=== PATIENT | male | born 1955 | race Caucasian/White ===

== ENCOUNTER → 2017-06-25 | Outpatient (CLI) | payer BC ==
[~2017-06-25] MED LIST: ATOR-22 PO; CRDCD240 PO; FENO145T26 PO; FLV1 PO; INSDGI SC; LSN40 PO; NVLGI SC; RANI150T3 PO; WARF5TAB7 PO
[2017-06-25 13:22] LABS: HEMOGLOBIN A1C 11.1 % (4.5-5.6)
[2017-06-25 13:52] LABS: ALT/SGPT 33 U/L (12-78); AST/SGOT 21 U/L (15-37); BLOOD UREA NITROGEN 21 mg/dl (7-18); CALCIUM 8.5 mg/dl (8.5-10.1); CARBON DIOXIDE 25 mmol/L (21-32); CREATININE 0.85 mg/dl (0.60-1.40); GLUCOSE 283 mg/dl (70-99); POTASSIUM 4.1 mmol/L (3.5-5.1); SODIUM 133 mmol/L (136-145)
[2017-06-25 13:57] LABS: CHOLESTEROL 161 mg/dl (0-200); LDL CHOLESTEROL CALCULATED 67 mg/dl
== END | disposition home or self-care (01) ==
LOC: C.LABMFLN 06:54
PROVIDERS: ATTEND Internal Medicine
DX: E11.9 Type 2 diabetes mellitus without complications (principal); E78.5 Hyperlipidemia, unspecified; C61 Malignant neoplasm of prostate

== ENCOUNTER 2019-04-01 04:05 | Inpatient (IN) ==
[2019-04-01] MEDS ORDERED: ONDANSETRON INJ 2 MG/ML 2 ML VIAL IV STA ×2 (04:41→07:07)
[2019-04-01] MEDS ORDERED: HYDROmorphone INJ 1 MG/ML SYRINGE IV STA ×3 (04:41→07:52)
[2019-04-01] MEDS ORDERED: SODIUM CHLORIDE 0.9% 1000ML 1,000 ML IV ONE (04:41)
[2019-04-01 05:05] LABS: Hemoglobin 9.2 g/dL (14.0-18.0); Mean Corpuscular Hemoglobin 26.3 pg (25-34); Mean Corpuscular Hgb Conc 32.9 g/dL (32-36); Mean Platelet Volume 10.9 fL (7.4-10.4); Nucleated RBC # (auto) 0.05 K/uL (0-0); Nucleated RBC % (auto) 0.4 %; Platelet Count 100 K/uL (130-400); RDW Coefficient of Variation 16.4 % (11.5-14.5); RDW Standard Deviation 46.1 fL (36.4-46.3); White Blood Count 13.32 K/uL (4.8-10.8)
[2019-04-01 05:15] LABS: Albumin Level 3.1 gm/dl (3.4-5.0); BUN Creatinine Ratio 14.4 (10-20); Bilirubin Direct 0.2 mg/dl (0-0.2); Calcium 8.5 mg/dl (8.5-10.1); Creatinine Clr Calc Pharmacy 76.8 ml/min; Est GFR (African American) 71.1; Est GFR (Non-African American) 61.3; Magnesium 1.4 mg/dl (1.8-2.4)
[2019-04-01 05:18] LABS: Bilirubin,Total 0.6 mg/dl (0.2-1); Total Protein 7.2 gm/dl (6.4-8.2)
[2019-04-01] MEDS ORDERED: IOVERSOL 100ml IV PRN (05:57)
[2019-04-01 06:09] LABS: Basophils # (auto) 0.02 K/uL (0-0.2); Basophils % (auto) 0.2 %; Immature Granulocytes # (auto) 1.21 K/uL (0.00-0.02); Immature Granulocytes % (auto) 9.1 %; Lymphocytes # (auto) 0.44 K/uL (1.2-3.4); Lymphocytes % (auto) 3.3 %; Monocytes # (auto) 0.98 K/uL (0.11-0.59); Monocytes % (auto) 7.4 %; Neutrophils # (auto) 10.67 K/uL (1.4-6.5)
[2019-04-01] MEDS: MAGNESIUM SULFATE / D5W 1 GM/100 ML BAG IV SCH ×2 (06:49→08:01)
[2019-04-01 06:54] LABS: Appearance Urine Cloudy (Clear); Blood Urine 3+ (Negative); Glucose Urine UA Negative (Negative); Ketones Urine Trace (Negative); Leukocyte Esterase Urine 1+ (Negative); Nitrite Urine Negative (Negative); Protein Urine 2+ (Negative); Specific Gravity Urine 1.016 (1.000-1.030); Urobilinogen Urine Negative (Negative)
[2019-04-01 07:03] LABS: Color Urine Amber
[2019-04-01 07:05] LABS: Bilirubin Urine Negative (Negative); Ictotest Urine Negative (Negative)
[2019-04-01 07:08] LABS: RBC Urine Automated >30 /hpf (0-4); Uric Acid Crystals Urine Present (None Prsent)
[2019-04-01 07:10] LABS: Amorphous Sediment Urine Present (None Prsent); Bacteria Urine Automated 1+ (Negative)
--- NOTE | 2019-04-01 07:31 | CT Scan Report ---
ABDOMEN AND PELVIS CT WITH IV CONTRAST CT DOSE: 1076.67 mGy.cm HISTORY: Acute right upper quadrant abdominal pain in a patient with history of pancreatic cancer. r ight upper quad pain. Panc CA TECHNIQUE: Multiaxial CT images of the abdomen and pelvis were performed following the IV administrat ion of 94 cc of Optiray 320, A dose lowering technique was utilized adhering to the principles of [place] ANN. COMPARISON STUDY: CT abdomen and pelvis 02/19/2019 FINDINGS: Mild subsegmental bibasilar atelectasis. There is no pneumatosis or pneumoperitoneum. The imaged infe rior cardiac chambers are mildly enlarged. Mild gallbladder distention and gallbladder wall thickenin g is noted with cholelithiasis. Mild heterogeneity of the right hepatic lobe without discrete focal h epatic mass lesion identified. The spleen is enlarged measuring up to 22.5 cm. Unremarkable adrenal g lands. Mild prominence of the common bile duct without significant intrahepatic biliary ductal dilati on. Patent portal vein. Occlusion of the splenic vein with multiple upper abdominal collaterals redem onstrated. Multiple bilateral renal cysts. Nonobstructing calculi of the right kidney measure up to 4 mm. No ureteral calculi or obstructive uropathy. Partial distention of the urinary bladder with mild wall thickening. Small fat filled bilateral inguinal hernias. Aorta and IVC are unremarkable. Promin ent retroperitoneal lymph nodes include precaval lymph nodes measuring up to 2.2 x 1.4 cm. There is a large heterogeneous multilocular cystic mass of the pancreatic tail measuring over 10 cm i n length which invades adjacent loops of jejunum and abuts the serosal margin of the gastric body wit h probable invasion. The mass also abuts the inferior spleen and perinephric space. No bowel obstruct ion. Colonic diverticulosis without acute diverticulitis. Mild wall thickening throughout the colon m ay be secondary to partial distention. Trace abdominal pelvic ascites. Diffuse omental/peritoneal car cinomatosis. 2.9 x 2.2 cm lesion on image 237 series 3 previously measured 3.5 x 2.3 cm. 1.3 center l esion on image 363 series 3 previously measured 1.67 m. Soft tissues are unremarkable. No suspicious lytic or blastic bony lesions identified. No acute fracture. IMPRESSION: 1. Cholelithiasis with mild gallbladder distention and wall thickening. Correlate clinically to exclu de acute cholecystitis. 2. No bowel obstruction or pneumoperitoneum. 3. Large cystic mass of the pancreatic tail suggestive of probable adenocarcinoma redemonstrated with invasion into adjacent jejunum with abutment and probable serosal invasion into the adjacent gastric body. 4. Extensive omental/mesenteric carcinomatosis with several of the lesions mildly decreased in size f rom comparison. 5. Trace abdominal pelvic ascites. 6. 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 Marked splenomegaly. 7. Nonobstructing bilateral nephrolithiasis. Electronically signed by: Bashir Mitchell M.D. 04/01/2019 7:28 AM
[2019-04-01] MEDS ORDERED: GLUCOSE 10 TABS/TUBE PO PRN (09:47)
[2019-04-01] MEDS ORDERED: CARBOHYDRATES FOR HYPOGLYCEMIA PO PRN (09:47)
[2019-04-01] MEDS ORDERED: GLUCOSE 40% GEL 15 GM TUBE PO PRN (09:47)
[2019-04-01] MEDS ORDERED: ONDANSETRON INJ 2 MG/ML 2 ML VIAL IV PRN (09:47)
[2019-04-01] MEDS ORDERED: GLUCAGON FOR INJ 1 MG VIAL SQ PRN (09:47)
[2019-04-01] MEDS ORDERED: DEXTROSE 50% 50 ML SYRINGE IV PRN (09:47)
[2019-04-01] MEDS ORDERED: PROMETHAZINE HCL 12.5 MG in SODIUM CHLORIDE 0.9% 50 ML IV PRN (09:47)
[2019-04-01] MEDS ORDERED: ACETAMINOPHEN 1,000 MG/100 ML VIAL IV PRN (09:47)
[2019-04-01] MEDS ORDERED: APIXABAN 5 MG TABLET PO SCH (10:00)
[2019-04-01] MEDS ORDERED: SERTRALINE HCL 50 MG TABLET PO SCH (10:00)
[2019-04-01] MEDS ORDERED: PANTOprazole 40 MG TAB PO SCH (10:00)
[2019-04-01] MEDS ORDERED: INSULIN GLARGINE SOLOSTAR 100 UNITS/ML 3 ML PEN SQ SCH (10:00)
[2019-04-01] MEDS ORDERED: dilTIAZem HCL 240 MG CAPCR PO SCH (10:00)
[2019-04-01] MEDS ORDERED: ONDANSETRON HCL 8 MG in DEXTROSE 5% 50 ML IV PRN (10:16)
--- NOTE | 2019-04-01 10:58 | Ultrasound Report ---
US gallbladder HISTORY: 63 years-old Male Cholelithasis seen on CT; abdominal pain . Generalized abdominal pain wit h pancreatic mass and cholelithiasis COMPARISON: CT abdomen and pelvis of same day TECHNIQUE: Multiple real-time sonographic images of the abdominal right upper quadrant were obtained. FINDINGS: Heterogeneous complex cystic and solid mass of the pancreatic body and tail measuring over 10 cm is r edemonstrated with areas of internal flow compatible with the patient's known pancreatic neoplasm. Ad ditional findings secondary to invasive mass are better appreciated on CT study of same day. Mildly increased echogenicity of the liver. No hepatic metastasis identified. No intrahepatic biliary ductal dilation. Edematous gallbladder wall thickening measures up to 6 mm. Mild pericholecystic flu id with gallbladder distention, large volume of, or sludge and shadowing cholelithiasis. Sonographic Rueda sign was not reported. Common bile duct is mildly dilated at 8 mm. No significant intrahepatic biliary ductal dilation. Perinephric edema with multiple right-sided renal cysts measuring up to 3.5 cm. Nonobstructing calculi of the right kidney measure up to 8 mm. IMPRESSION: 1. Large complex cystic and solid neoplasm of the pancreatic body and tail redemonstrated, better shahzad luated and described on CT abdomen and pelvis study of same day. 2. Distended gallbladder with large amount of gallbladder sludge and mild associated cholelithiasis i s noted along with edematous gallbladder wall thickening and pericholecystic fluid. Findings are conc erning for acute cholecystitis. 3. Mild dilation of the common bile duct. 4. Nonobstructing right nephrolithiasis. The above report was generated using voice recognition software. It may contain grammatical, syntax o r spelling errors. Electronically signed by: Bashir Mitchell M.D. 04/01/2019 10:57 AM
[2019-04-01] MEDS ORDERED: LACTATED RINGER'S 1,000 ML IV SCH (11:00)
[2019-04-01] MEDS: HYDROmorphone INJ 1 MG/ML SYRINGE IV PRN ×2 (11:08→15:16)
[2019-04-01] MEDS ORDERED: INSULIN ASPART 100 UNITS/ML 3 ML PEN SC SCH (11:30)
[2019-04-01] MEDS ORDERED: PIPERACILL/TAZOBAC CONSULT ACTIVE PRN (13:07)
--- NOTE | 2019-04-01 13:24 | History & Physical Report ---
Date of Service April 01, 2019 Assessment & Plan (1) Acute cholecystitis: Concern for acute cholecystitis from gallbladder ultrasound on 04/01. (See HPI for impressions.) It's not clear to me if this is actually acute cholecystitis as he has no pain in the RUQ, as it is mainly focused on the LLQ at this time. Charcot's triad is entirely negative with no RUQ pain, no fever, and normal Tbili. Sergio's pentad also negative without shock or tachycardia. He is lethargic, but only after multiple doses of Dilaudid for his pain. However, given his immunosuppression, cancer, and overall health, I and family preferred to have him evaluated at [facility] given he receives his full cancer care there. - Started IV Zosyn on 04/01 at 1pm when ultrasound came back. - Patient may need MRCP vs. ERCP vs. perc manny drain (2) Pancreatic cancer: Stage IV pancreatic adenocarcinoma. Receives chemotherapy at [facility] with last dose of Gemzar and Abraxane on 03/22/2019. (3) Diabetes mellitus, type 2: Sugars under control during his short hospitalization here. (4) Hypertension: BP stable at 160/75 on discharge. History of Present Illness Primary Care Provider: Eduardo Funes MD Patient reports pain began at 11:30pm last night. With worse nausea and vomiting as well, and he could not keep down his oxycodone. Told to present to the ED per his oncologist. Required multiple IV pushes of Dilaudid for pain. 1.5 mg IV seemed to help bring the pain down to a 4/10. CT shows stable pancreatic tumor and carcinomatosis. Ultrasound of gallbladder showed: 1. Large complex cystic and solid neoplasm of the pancreatic body and tail redemonstrated, better evaluated and described on CT abdomen and pelvis study of same day. 2. Distended gallbladder with large amount of gallbladder sludge and mild associated cholelithiasis is noted along with edematous gallbladder wall t hickening and pericholecystic fluid. Findings are concerning for acute cholecystitis. 3. Mild dilation of the common bile duct. 4. Nonobstructing right nephrolithiasis. Started on Zosyn for possible acute cholecystitis. Family prefers transfer to [facility] for further care. Allergies Allergy/AdvReac Type Severity Reaction Status Date / Time Sulfa (Sulfonamide Allergy Severe FACIAL Verified 04/01/19 07:03 Antibiotics) SWELLING, HIVES, RASH Home Medications Home Medications Medication Instructions Recorded Confirmed Type fenofibrate nanocrystallized 145 145 mg PO DAILY #90 tab 10/31/18 04/01/19 Rx mg tablet atorvastatin 20 mg tablet 20 mg PO DAILY #90 tab 11/01/18 04/01/19 Rx sertraline 50 mg tablet 50 mg PO DAILY 12/31/18 04/01/19 History diltiazem CD 240 mg 240 mg PO DAILY #90 cap 02/01/19 04/01/19 Rx capsule,extended release 24 hr icosapent ethyl 1 gram capsule 2 gm PO BID 02/17/19 04/01/19 History apixaban 5 mg tablet 5 mg PO BID 03/01/19 04/01/19 History insulin glargine (U-100) 100 40 units SQ DAILY ml 03/01/19 04/01/19 History unit/mL (3 mL) subcutaneous pen albuterol sulfate HFA 90 2 puffs INHALATION Q4H PRN gm 03/13/19 04/01/19 History mcg/actuation aerosol inhaler epinephrine 0.3 mg/0.3 mL 0.3 ml IM USEASDIRECTD PRN ea 03/13/19 04/01/19 History injection, auto-injector gemcitabine 1,920 mg IV UD 04/01/19 04/01/19 History insulin aspart U-100 [Novolog 0 unit SUBCUT TIDM 04/01/19 04/01/19 History Flexpen U-100 Insulin] lisinopril 10 mg PO DAILY 04/01/19 04/01/19 History ondansetron HCl 8 mg PO Q8 PRN 04/01/19 04/01/19 History oxycodone 10 mg PO Q6 PRN 04/01/19 04/01/19 History paclitaxel-protein bound [Abraxane] 240 mg IV UD 04/01/19 04/01/19 History pantoprazole 40 mg PO BID 04/01/19 04/01/19 History prochlorperazine maleate 10 mg PO Q6 PRN 04/01/19 04/01/19 History Past Med/Surg History Medical History Pancreatic cancer Anxiety Asthma SEASONAL CKD (chronic kidney disease) Deep vein thrombosis LT LEG 2015-ON [place] Diabetes mellitus, type 2 Focal segmental glomerulosclerosis Hyperlipidemia Hypertension Prostate CA Sleep apnea CPAP Surgical History H/O colonoscopy H/O hernia repair H/O umbilical hernia repair History of cataract surgery LT History of prostatectomy PROSTATE CANCER--NO CHEMO/RADIATION History of tonsillectomy Status post biopsy of kidney Status post uvulopalatopharyngoplasty Family History Family/Other Family history of malignant hyperthermia PATERNAL AUNT Brother Family history of diabetes mellitus Obstructive sleep apnea Cognitive decline Father H/O malignant mesothelioma lung Mother Hypertension Ovarian cancer Social History Preferred Language: Croatian Communication Ability: Effective Individual Small Group Instructor Required: No Beliefs That Will Affect Care: None Current Living Situation: Spouse Current Living Situation Comment: Resides at home with and [id number] Other Information That Helps Us Care for You: No Feels Safe at Home: Yes Safety Concerns: Feels Safe At This Time Smoking Status: Never smoker Second Hand Exposure: No ; Hx Alcohol Use: No Hx Substance Use: No Review of Systems Constitutional: + fatigue and + weakness; no fever, no chills and no sweats Eyes: no diplopia Ear, Nose, Mouth, Throat: no ear trauma, no nasal discharge and no dental pain Respiratory: no cough, no chest congestion and no dyspnea Cardiovascular: no chest pain, no dyspnea on exertion, no palpitations and no syncope Gastrointestinal: + abdominal pain, + nausea, + vomiting and + diarrhea/loose stools (Last Wednesday); no belching, no constipation, no blood in stools and no melena Musculoskeletal: no back pain, no joint pain and no muscle weakness Integumentary: no rash, no skin ulcer and no erythema Neurologic: no generalized weakness, no loss of sensation, no numbness and no paresthesia Psychiatric: no depression and no anxiety Endocrine: no fatigue, no polydipsia and no polyphagia Physical Exam Constitutional: + acute distress, + frail appearing and + lethargic Eyes: EOM intact bilaterally; no conjunctival abnormality ENMT: external ear and nose normal, oropharynx normal Neck: trachea midline, no thyromegaly normal visual inspection Respiratory: normal respiratory effort, lungs clear to auscultation no respiratory distress Cardiovascular: RRR, no murmur, no edema Gastrointestinal (Abdomen): Inspection/Auscultation: abdomen normal to inspection; abdomen not distended Percussion/Palpation: + abdomen tender (Diffuse) and abdomen soft; no guarding and abdomen not rigid Musculoskeletal: no cyanosis or clubbing, extremities motor strength 5/5 Skin: no rashes, warm and dry Neurologic: moves all extremities and awake Psychiatric: Orientation: alert, oriented to person and cooperative Results & Data Vital Signs (Past 12 Hours) Vital Signs Temp Pulse Pulse Resp BP BP Pulse Ox 04/01/19 11:25 36.6 C 72 18 160/76 H 98 04/01/19 09:55 36.4 C L 70 20 170/77 H 98 04/01/19 08:00 76 16 140/81 97 04/01/19 06:13 89 16 153/86 H 99 04/01/19 04:13 37 C 77 18 121/67 96 Code Status & VTE Plan VTE Prophylaxis Plan VTE Prophylaxis will be ordered: Yes PG Care Time/CCT Total # of Minutes Spent Total Time Spent with Patient: Total time spent is greater than 50% in coordination of care (as documented) at patient's floor/unit and/or counseling patient:
--- NOTE | 2019-04-01 13:25 | Discharge Summary ---
Date of Service April 01, 2019 Admission HPI Per Admitting Provider Patient reports pain began at 11:30pm last night. With worse nausea and vomiting as well, and he could not keep down his oxycodone. Told to present to the ED per his oncologist. Required multiple IV pushes of Dilaudid for pain. 1.5 mg IV seemed to help bring the pain down to a 4/10. CT shows stable pancreatic tumor and carcinomatosis. Ultrasound of gallbladder showed: 1. Large complex cystic and solid neoplasm of the pancreatic body and tail redemonstrated, better evaluated and described on CT abdomen and pelvis study of same day. 2. Distended gallbladder with large amount of gallbladder sludge and mild asso ciated cholelithiasis is noted along with edematous gallbladder wall thickening and pericholecystic fluid. Findings are concerning for acute cholecystitis. 3. Mild dilation of the common bile duct. 4. Nonobstructing right nephrolithiasis. Started on Zosyn for possible acute cholecystitis. Family prefers transfer to [facility] for further care. Principal Diagnosis Possible acute cholecystitis Discharge Exam Constitutional + acute distress, + frail appearing and + lethargic Eyes EOM intact bilaterally; no conjunctival abnormality ENMT external ear and nose normal, oropharynx normal Neck trachea midline, no thyromegaly normal visual inspection Respiratory normal respiratory effort, lungs clear to auscultation no respiratory distress Cardiovascular RRR, no murmur, no edema Gastrointestinal (Abdomen) Inspection/Auscultation: abdomen normal to inspection; abdomen not distended Percussion/Palpation: + abdomen tender (Diffuse) and abdomen soft; no guarding and abdomen not rigid Musculoskeletal no cyanosis or clubbing, extremities motor strength 5/5 Skin no rashes, warm and dry Neurologic moves all extremities and awake Psychiatric Orientation: alert, oriented to person and cooperative Discharge Data Allergies Allergy/AdvReac Type Severity Reaction Status Date / Time Sulfa (Sulfonamide Allergy Severe FACIAL Verified 04/01/19 07:03 Antibiotics) SWELLING, HIVES, RASH Consultations 04/01/19 07:52 ED Decision to Admit Stat 04/01/19 13:10 Burn CD for patient Stat Ordered Studies 04/01/19 05:38 CT abd pelvis IV con only Urgent 04/01/19 09:47 US gallbladder Urgent Hospital Course (1) Acute cholecystitis: Concern for acute cholecystitis from gallbladder ultrasound on 04/01. (See HPI for impressions.) It's not clear to me if this is actually acute cholecystitis as he has no pain in the RUQ, as it is mainly focused on the LLQ at this time. Charcot's triad is entirely negative with no RUQ pain, no fever, and normal Tbili. Sergio's pentad also negative without shock or tachycardia. He is lethargic, but only after multiple doses of Dilaudid for his pain. However, given his immunosuppression, cancer, and overall health, I and family preferred to have him evaluated at [facility] given he receives his full cancer care there. - Started IV Zosyn on 04/01 at 1pm when ultrasound came back. - Patient may need MRCP vs. ERCP vs. perc manny drain (2) Pancreatic cancer: Stage IV pancreatic adenocarcinoma. Receives chemotherapy at [facility] with last dose of Gemzar and Abraxane on 03/22/2019. (3) Diabetes mellitus, type 2: Sugars under control during his short hospitalization here. (4) Hypertension: BP stable at 160/75 on discharge. Total Time Total Time Spent Total Time Spent (In Minutes): 45 Total Time Includes: Examination of the Patient, Discharge Planning, Medication Reconciliation and Communication With Other Providers Discharge Plan Discharge Items Patient Disposition: Transfer Acute Care Hospital Reason For Visit: CANCER PAIN Discharge Diagnosis: Cancer pain vs. acute cholecystitis Activity: Resume your previous activity Non-emergency contact: Primary Care Provider and Oncologist Call non-emergency contact if: your symptoms worsen and your temperature is above 101 Follow-up/Referrals: Eduardo Funes MD [Primary Care Provider] - Diet: Regular Addtl Attending Provider Instructions: Presented with RLQ and LLQ abdominal pain. Gallbladder ultrasound showed :IMPRESSION: 1. Large complex cystic and solid neoplasm of the pancreatic body and tail redemonstrated, better evaluated and described on CT abdomen and pelvis study of same day. 2. Distended gallbladder with large amount of gallbladder sludge and mild associated cholelithiasis is noted along with edematous gallbladder wall thickening and pericholecystic fluid. Findings are concerning for acute cholecystitis. 3. Mild dilation of the common bile duct. 4. Nonobstructing right nephrolithiasis. Pain improved with Dilaudid 1.5mg IV Q2h PRN -> Needed 3 doses. WBC was 13. No fevers and other vitals stable. Received a dose of Zosyn on 04/01 in the afternoon when ultrasound returned. Pending Studies at Discharge: No Stand-Alone Forms: Call Back Authorization, My [facility] Skilled Items Patient informed of condition?: Yes DNR: No Discharge Level of Care: Other Communicable Disease: No Discharge Prognosis: Stable Lines: Peripheral IV Urinary Catheter: No Medications and DC Order Prescriptions: Continued fenofibrate nanocrystallized [Tricor] 145 mg tablet 145 mg PO DAILY Qty: 90 RF: 3 atorvastatin [Lipitor] 20 mg tablet 20 mg PO DAILY Qty: 90 RF: 3 diltiazem HCl [Cardizem CD] 240 mg capsule,extended release 24hr 240 mg PO DAILY Qty: 90 RF: 3 Vascepa 1 gram capsule 2 gm PO BID RF: 0 epinephrine 0.3 mg/0.3 mL auto-injector 0.3 ml IM USEASDIRECTD PRN (Reason: anaphylaxis) RF: 0 sertraline 50 mg tablet 50 mg PO DAILY RF: 0 albuterol sulfate 90 mcg/actuation HFA aerosol inhaler 2 puffs inhalation Q4H PRN (Reason: shortness of breath or wheezing) RF: 0 Eliquis 5 mg tablet 5 mg PO BID RF: 0 Basaglar KwikPen U-100 Insulin 100 unit/mL (3 mL) insulin pen 40 units SQ DAILY RF: 0 prochlorperazine maleate 10 mg tablet 10 mg PO Q6 PRN (Reason: Nausea And Vomiting) RF: 0 pantoprazole 40 mg tablet,delayed release (DR/EC) 40 mg PO BID RF: 0 Novolog Flexpen U-100 Insulin 100 unit/mL (3 mL) insulin pen subcut TIDM RF: 0 oxycodone 10 mg tablet 10 mg PO Q6 PRN (Reason: Pain) RF: 0 ondansetron HCl 8 mg tablet 8 mg PO Q8 PRN (Reason: Nausea And Vomiting) RF: 0 lisinopril 10 mg Tablet 10 mg PO DAILY RF: 0 gemcitabine 1 gram Recon Soln 1,920 mg IV UD RF: 0 Abraxane 100 mg Suspension For Reconstitution 240 mg IV UD RF: 0 Discharge Orders: Discharge Order (Routine); Ordered 04/01/19 Ordered By: Jeff Posey Admission Data Admit Date/Time: 04/01/19 08:42 Attending Provider: Jeff Posey Admit Provider: Jeff Posey Primary Care Provider: Eduardo Funes Other Providers: Jeff Posey
[2019-04-01] MEDS ORDERED: PIPERACILLIN/TAZOBACTAM 3.375 GM in DEXTROSE 5% 100 ML IV ONE (13:30)
[2019-04-01] MEDS ORDERED: PROMETHAZINE HCL 12.5 MG in SODIUM CHLORIDE 0.9% 50 ML IV STA (15:05)
[2019-04-01] MEDS ORDERED: PIPERACILLIN/TAZOBACTAM 3.375 GM in DEXTROSE 5% 100 ML IV SCH (18:00)
--- NOTE | 2019-04-02 04:31 | Emergency Department Note ---
Entered by Mookie Tellez acting as a scribe for Daniel Rodriguez MD ED Provider Note Name: Miguel A Coleman Age: 63 Arrives Via: Triage Informant: Self CC: RUQ abdominal pain HPI: 63 y/o male arrives for evaluation of worsening right sided abdominal pain beginning 4 hours ago. The patient states he has a history of pancreatis cancer that spread to his intestines, and he had his third dose of chemotherapy on the . He reports it did not go well, but he did receive all of his treatment. The patient notes he also has not been able to urinate well this evening, and that is something new. He states he has burning with urination. The patient reports he tried to take his pain medication, but he was nauseous and vomited his medication up. He notes he called the on-call nurse and was told to take another dose of his medication, but he was too nervous to take it again. The patient states a history of this abdominal pain but notes it is sharper than his previous episodes. He denies fevers, a history of kidney stones, abdominal distention, leg swelling, falls, rashes, and recent injuries. ROS: See above HPI for pertinent positives & negatives. A total of 10 systems reviewed and were otherwise negative. Past Medical History: GERD, CKD, DVT, FSGS, HTN, DM, Asthma, Pancreatic cancer Past Surgical History: Tonsillectomy Family History: DM, HTN, cancer Social History: . Home Medications: see below Allergies sulfa Physical: Vitals: BP 121/67, Pulse 77, O2Sat 96, Temp 98.6 F, Resp 18 Exam: GENERAL: Patient is moderately uncomfortable and tired appearing and in no acute distress. EYES: No scleral icterus, unremarkable pupils. ENT: Mucous membranes moist, no nasal congestion. NECK: No masses appreciated, no meningismus, trachea is midline. RESPIRATORY: No dyspnea. Clear to auscultation and equal bilaterally. No wheeze, no rhonchi. CARDIOVASCULAR: Regular rate and rhythm. No murmurs, rubs, gallops appreciated. GASTROINTESTINAL: Abdomen soft, moderate and diffusely vague tenderness to palpation, no peritonitis. Bowel sounds positive. No masses appreciated. BACK: No midline tenderness, no CVA tenderness EXTREMITIES: Normal motion all extremities, no cyanosis, no edema. NEUROLOGIC: Alert and oriented, no acute motor or sensory deficits, no focal weakness, cranial nerves grossly intact. SKIN: No rash, no jaundice, no diaphoresis. ED Course: Prior Medical Record, Triage/Nursing Notes, Medications, Allergies reviewed by Me Vital Signs: reviewed and remarkable for wnl Labs: Reviewed and remarkable for as below Interventions: saline lock, dilaudid 1mg IV x 2, zofran 4mg IV x 2, IV fluids Imaging: [facility] Radiologist interpretation reviewed by me: CT abdo pelv with IV contrast: "CT ABDOMEN & PELVIS With Contrast: Normal appendix. No acute process along the GI tract. Sigmoid diverticulosis without diverticulitis. Cholelithiasis. Mild mucosal thickening adjacent to the gallbladder, nonspecific. Large multicystic mass centered within the tail of the pancreas. The mass abuts and possibly involves multiple loops of jejunum and the greater curvature of the stomach. Splenic vein thrombosis with collaterals in the left upper quadrant and splenomegaly, unchanged. Peritoneal carcinomatosis. Punctate densities at the bilateral ureterovesical junctions (images [id number] and [id number]). Mild bilateral hydronephrosis. These may represent tiny stones versus artifact. Correlate clinically. Scattered small volume free fluid. Radiologist: Bull Francis MD" Consults: Dr Kalpesh ROTHMAN Hospitalist Reassessments/Times: 0436: Past medical records reviewed. The patient was evaluated in room B10. A complete history and physical exam was performed. 0538: The patient reports he is feeling better, and his pain is improving. 0545: The patient agrees to a CT scan. He notes he does not want pain medication now. 0654: His pain is returning, but this time it is in the LLQ. He is requesting a hospitalist evaluation. Hospitalist aware and will evaluate further Blood pressure: Normal. No Referral necessary Disposition: hospitalization Differentials: Differential diagnoses includes but is not limited to gastritis, peptic ulcer disease, GERD, gallbladder disease, pancreatitis, small bowel obstruction, acute coronary syndrome, pericarditis, ischemic bowel, irritable bowel disease, irritable bowel syndrome, appendicitis, diverticulitis, malignancy, hernia, urinary tract infection, torsion, perforation, trauma, infectious. Medical Decision Making: Pleasant 63 yr old male with known metastatic diffuse pancreatic CA arrives for worsening diffuse abdominal pain. Varying amongst multiple areas of abdomen. Moderate hypomag but otherwise labs unremarkable. Given amount of pain CT done which reveals extensive metastatic issues but no acute findings. Of note patient had some RUQ initially but on repeat evals seems resolved. No clear evidence cholecystitis on CT at this time. He was kept comfortable. Reviewed with hospitalist and given continued pain will bring in for further pain control and monitoring. Impression: Metastasis from pancreatic cancer abdominal pain diffuse intractable abdominal pain Daniel Rodriguez MD The scribe's documentation has been prepared under my direction and personally reviewed by me in its entirety. I confirm that the note above accurately reflects all work, treatment, procedures, and medical decision making performed by me. Impression & Plan Metastasis from pancreatic cancer, Abdominal pain, diffuse, Intractable abdominal pain Past Med/Surg History Medical History Pancreatic cancer Anxiety Asthma SEASONAL CKD (chronic kidney disease) Deep vein thrombosis LT LEG 2014-ON [place] Diabetes mellitus, type 2 Focal segmental glomerulosclerosis Hyperlipidemia Hypertension Prostate CA Sleep apnea CPAP Surgical History H/O colonoscopy H/O hernia repair H/O umbilical hernia repair History of cataract surgery LT History of prostatectomy PROSTATE CANCER--NO CHEMO/RADIATION History of tonsillectomy Status post biopsy of kidney Status post uvulopalatopharyngoplasty Family History Family/Other Family history of malignant hyperthermia PATERNAL AUNT Brother Family history of diabetes mellitus Obstructive sleep apnea Cognitive decline Father H/O malignant mesothelioma lung Mother Hypertension Ovarian cancer Social History Preferred Language: Nepalese Communication Ability: Effective Labor Relations Analyst Required: No Beliefs That Will Affect Care: None Current Living Situation: Spouse Current Living Situation Comment: Resides at home with and [id number] Feels Safe at Home: Yes Smoking Status: Never smoker Second Hand Exposure: No ; Hx Alcohol Use: No Hx Substance Use: No Results & Data Vital Signs Vital Signs - 24 hr 04/01/19 08:00 Pulse Rate [Right] 76 Respiratory Rate 16 Blood Pressure [Right Arm] 140/81 Blood Pressure Mean [Right Arm] 100 Pulse Oximetry 97 Oxygen Delivery Method Room Air Laboratory Data Result diagrams: 04/01/19 04:39 04/01/19 04:39 Lab Results 04/01/19 04/01/19 04/01/19 Range/Units 04:39 04:39 06:16 WBC 13.32 H (4.8-10.8) K/uL RBC 3.50 L (4.7-6.1) M/uL Hgb 9.2 L (14.0-18.0) g/dL Hct 28.0 L (42-52) % MCV 80.0 (80-100) fL MCH 26.3 (25-34) pg MCHC 32.9 (32-36) g/dL RDW Std Deviation 46.1 (36.4-46.3) fL RDW Coeff of Terrance 16.4 H (11.5-14.5) % Plt Count 100 L (130-400) K/uL MPV 10.9 H (7.4-10.4) fL Immature Gran % (Auto) 9.1 % Neut % (Auto) 80.0 % Lymph % (Auto) 3.3 % [place] % (Auto) 7.4 % Eos % (Auto) 0.0 % Baso % (Auto) 0.2 % Immature Gran # (Auto) 1.21 H (0.00-0.02) K/uL Neut # (Auto) 10.67 H (1.4-6.5) K/uL Lymph # (Auto) 0.44 L (1.2-3.4) K/uL [place] # (Auto) 0.98 H (0.11-0.59) K/uL Eos # (Auto) 0.00 (0-0.5) K/uL Baso # (Auto) 0.02 (0-0.2) K/uL Absolute Nucleated RBC 0.05 H (0-0) K/uL Nucleated RBC % (auto) 0.4 % Sodium 136 (136-145) mmol/L Potassium 4.0 (3.5-5.1) mmol/L Chloride 100 (98-107) mmol/L Carbon Dioxide 26 (21-32) mmol/L Anion Gap 10.0 (3-11) BUN 18 (7-18) mg/dl Creatinine 1.25 (0.6-1.4) mg/dl Est Cr Clr Drug Dosing 76.8 ml/min Est GFR ( Amer) 71.1 Est GFR (Non-Af Amer) 61.3 BUN/Creatinine Ratio 14.4 (10-20) Glucose 217 H (70-99) mg/dl Calcium 8.5 (8.5-10.1) mg/dl Magnesium 1.4 L (1.8-2.4) mg/dl Total Bilirubin 0.6 (0.2-1) mg/dl Direct Bilirubin 0.2 (0-0.2) mg/dl AST 27 (15-37) U/L ALT 24 (12-78) U/L Alkaline Phosphatase 94 (45-117) U/L Total Protein 7.2 (6.4-8.2) gm/dl Albumin 3.1 L (3.4-5.0) gm/dl Lipase 132 (73-393) U/L Urine Color Ann Urine Appearance Cloudy A (Clear) Urine pH 5.0 (4.5-7.5) Ur Specific [place] 1.016 (1.000-1.030) Urine Protein 2+ H (Negative) Urine Glucose (UA) Negative (Negative) Urine Ketones Trace H (Negative) Urine Blood 3+ H (Negative) Urine Nitrite Negative (Negative) Urine Bilirubin Negative (Negative) Urine Urobilinogen Negative (Negative) Ur Leukocyte Esterase 1+ H (Negative) Urine WBC (Auto) 10-30 H (0-5) /hpf Urine RBC (Auto) >30 H (0-4) /hpf U Hyaline Cast (Auto) 1-5 (0-5) /lpf U Epithel Cells (Auto) 10-20 H (0-5) /lpf Urine Bacteria (Auto) 1+ H (Negative) Urine Crystals Not Reportable Uric Acid Crystals Present A (None Prsent) Amorphous Sediment Present A (None Prsent) Granular Casts 1-5 H (0) /lpf Urine Yeast Not Reportable Administered Medications Discontinued Medications Apixaban (Eliquis) 5 mg PO BID CANDACE Stop: 05/01/19 09:59 Last Admin: 04/01/19 11:51 Dose: 5 mg Documented by: [id number] Diltiazem HCl (Cardizem Cd) 240 mg PO DAILY CANDACE Stop: 05/01/19 09:59 Last Admin: 04/01/19 11:51 Dose: 240 mg Documented by: [id number] Hydromorphone HCl (Dilaudid) 1 mg IV NOW STA Stop: 04/01/19 04:42 Last Admin: 04/01/19 04:49 Dose: 1 mg Documented by: [id number] Hydromorphone HCl (Dilaudid) 1 mg IV NOW STA Stop: 04/01/19 06:55 Last Admin: 04/01/19 07:17 Dose: 1 mg Documented by: [id number] Hydromorphone HCl (Dilaudid) 1 mg IV NOW STA Stop: 04/01/19 07:53 Last Admin: 04/01/19 08:53 Dose: 1 mg Documented by: [id number] Hydromorphone HCl (Dilaudid) 1.5 mg IV Q2H PRN PRN Reason: Pain Stop: 04/15/19 08:41 Last Admin: 04/01/19 15:16 Dose: 1.5 mg Documented by: [id number] Admin: 04/01/19 11:08 Dose: 1.5 mg Documented by: [id number] Sodium Chloride (Nss 1000ml) 1,000 mls @ 999 mls/hr IV .Q1H1M ONE Stop: 04/01/19 05:41 Last Infusion: 04/01/19 06:00 Dose: 0 mls/hr Documented by: [id number] Admin: 04/01/19 04:49 Dose: 999 mls/hr Documented by: [id number] Magnesium Sulfate/Dextrose (Magnesium Sulfate / D5w) 1 gm in 100 mls @ 100 mls/hr IV Q1H CANDACE Stop: 04/01/19 08:44 Last Infusion: 04/01/19 09:03 Dose: 0 mls/hr Documented by: [id number] Admin: 04/01/19 08:01 Dose: 100 mls/hr Documented by: [id number] Infusion: 04/01/19 08:00 Dose: 0 mls/hr Documented by: [id number] Admin: 04/01/19 06:49 Dose: 100 mls/hr Documented by: [id number] Acetaminophen (Ofirmev) 1,000 mg in 100 mls @ 400 mls/hr IV Q8H PRN PRN Reason: Pain Stop: 04/04/19 09:46 Last Infusion: 04/01/19 12:05 Dose: 0 mls/hr Documented by: [id number] Admin: 04/01/19 11:50 Dose: 400 mls/hr Documented by: [id number] Promethazine HCl 12.5 mg/ (Sodium Chloride) 50.5 mls @ 202 mls/hr IV Q6H PRN PRN Reason: Nausea And Vomiting Stop: 05/01/19 09:46 Last Infusion: 04/01/19 12:06 Dose: 0 mls/hr Documented by: [id number] Admin: 04/01/19 11:47 Dose: 202 mls/hr Documented by: [id number] Ondansetron HCl 8 mg/ Dextrose 54 mls @ 200 mls/hr IV Q6H PRN PRN Reason: Nausea Stop: 05/01/19 10:15 Last Infusion: 04/01/19 11:50 Dose: 0 mls/hr Documented by: [id number] Admin: 04/01/19 11:08 Dose: 200 mls/hr Documented by: [id number] Lactated Ringer's (Lr) 1,000 mls @ 75 mls/hr IV .[id number] [facility] Stop: 05/01/19 10:59 Last Admin: 04/01/19 11:52 Dose: 75 mls/hr Documented by: [id number] Piperacillin Sod/Tazobactam (Sod 3.375 gm/ Dextrose) 115 mls @ 230 mls/hr IV NOW ONE; Protocol Stop: 04/01/19 13:59 Last Admin: 04/01/19 13:48 Dose: 28.8 mls/hr Documented by: [id number] Promethazine HCl 12.5 mg/ (Sodium Chloride) 50.5 mls @ 202 mls/hr IV NOW STA Stop: 04/01/19 15:19 Last Infusion: 04/01/19 15:35 Dose: 0 mls/hr Documented by: [id number] Admin: 04/01/19 15:13 Dose: 202 mls/hr Documented by: [id number] Insulin Aspart (Novolog Flexpen) 0 units SC ACHS CANDACE Stop: 05/01/19 11:29 Last Admin: 04/01/19 12:03 Dose: 3 units Documented by: [id number] Cosigned by: [id number] Insulin Glargine (Lantus Solostar Pen) 20 units SQ DAILY CANDACE Stop: 05/01/19 09:59 Last Admin: 04/01/19 11:52 Dose: 20 units Documented by: [id number] Cosigned by: [id number] Ioversol (Optiray 320 100ml) 94 ml IV ONCE PRN PRN Reason: Interaction Checking Stop: 04/05/19 05:56 Last Admin: 04/01/19 05:57 Dose: 94 ml Documented by: [id number] Ondansetron HCl (Zofran) 4 mg IV NOW STA Stop: 04/01/19 04:42 Last Admin: 04/01/19 04:49 Dose: 4 mg Documented by: [id number] Ondansetron HCl (Zofran) 4 mg IV NOW STA Stop: 04/01/19 07:08 Last Admin: 04/01/19 07:18 Dose: 4 mg Documented by: [id number] Pantoprazole Sodium (Protonix) 40 mg PO BID CANDACE Stop: 05/01/19 09:59 Last Admin: 04/01/19 11:51 Dose: 40 mg Documented by: [id number] Sertraline HCl (Zoloft) 50 mg PO DAILY CANDACE Stop: 05/01/19 09:59 Last Admin: 04/01/19 11:51 Dose: 50 mg Documented by: [id number] Medical Decision Making Laboratory Data Result diagrams: 04/01/19 04:39 04/01/19 04:39 Lab Results 04/01/19 04/01/19 04/01/19 Range/Units 04:39 04:39 06:16 WBC 13.32 H (4.8-10.8) K/uL RBC 3.50 L (4.7-6.1) M/uL Hgb 9.2 L (14.0-18.0) g/dL Hct 28.0 L (42-52) % MCV 80.0 (80-100) fL MCH 26.3 (25-34) pg MCHC 32.9 (32-36) g/dL RDW Std Deviation 46.1 (36.4-46.3) fL RDW Coeff of Terrance 16.4 H (11.5-14.5) % Plt Count 100 L (130-400) K/uL MPV 10.9 H (7.4-10.4) fL Immature Gran % (Auto) 9.1 % Neut % (Auto) 80.0 % Lymph % (Auto) 3.3 % [place] % (Auto) 7.4 % Eos % (Auto) 0.0 % Baso % (Auto) 0.2 % Immature Gran # (Auto) 1.21 H (0.00-0.02) K/uL Neut # (Auto) 10.67 H (1.4-6.5) K/uL Lymph # (Auto) 0.44 L (1.2-3.4) K/uL [place] # (Auto) 0.98 H (0.11-0.59) K/uL Eos # (Auto) 0.00 (0-0.5) K/uL Baso # (Auto) 0.02 (0-0.2) K/uL Absolute Nucleated RBC 0.05 H (0-0) K/uL Nucleated RBC % (auto) 0.4 % Sodium 136 (136-145) mmol/L Potassium 4.0 (3.5-5.1) mmol/L Chloride 100 (98-107) mmol/L Carbon Dioxide 26 (21-32) mmol/L Anion Gap 10.0 (3-11) BUN 18 (7-18) mg/dl Creatinine 1.25 (0.6-1.4) mg/dl Est Cr Clr Drug Dosing 76.8 ml/min Est GFR ( Amer) 71.1 Est GFR (Non-Af Amer) 61.3 BUN/Creatinine Ratio 14.4 (10-20) Glucose 217 H (70-99) mg/dl Calcium 8.5 (8.5-10.1) mg/dl Magnesium 1.4 L (1.8-2.4) mg/dl Total Bilirubin 0.6 (0.2-1) mg/dl Direct Bilirubin 0.2 (0-0.2) mg/dl AST 27 (15-37) U/L ALT 24 (12-78) U/L Alkaline Phosphatase 94 (45-117) U/L Total Protein 7.2 (6.4-8.2) gm/dl Albumin 3.1 L (3.4-5.0) gm/dl Lipase 132 (73-393) U/L Urine Color Ann Urine Appearance Cloudy A (Clear) Urine pH 5.0 (4.5-7.5) Ur Specific [place] 1.016 (1.000-1.030) Urine Protein 2+ H (Negative) Urine Glucose (UA) Negative (Negative) Urine Ketones Trace H (Negative) Urine Blood 3+ H (Negative) Urine Nitrite Negative (Negative) Urine Bilirubin Negative (Negative) Urine Urobilinogen Negative (Negative) Ur Leukocyte Esterase 1+ H (Negative) Urine WBC (Auto) 10-30 H (0-5) /hpf Urine RBC (Auto) >30 H (0-4) /hpf U Hyaline Cast (Auto) 1-5 (0-5) /lpf U Epithel Cells (Auto) 10-20 H (0-5) /lpf Urine Bacteria (Auto) 1+ H (Negative) Urine Crystals Not Reportable Uric Acid Crystals Present A (None Prsent) Amorphous Sediment Present A (None Prsent) Granular Casts 1-5 H (0) /lpf Urine Yeast Not Reportable MDM Narrative Discharge Plan Visit Data *Final* Discharge Date/Time: 04/01/19 09:20 Chief Complaint: Abdominal Pain Stated Complaint: ABD PAIN ED Provider: Daniel Rodriguez Discharge Problem: Metastasis from pancreatic cancer, Abdominal pain, diffuse, Intractable abdominal pain Patient Disposition: Admitted As Inpatient Discharge Instructions Interventions: ED Discharge Assessment Last Done: 04/01/19 09:20 The scribe's documentation has been prepared under my direction and personally reviewed by me in its entirety. I confirm that the note above accurately reflects all work, treatment, procedures, and medical decision making performed by me.
== END 2019-04-01 16:15 | disposition short-term general hospital (02) | DRG 445 ==
LOC: ED 04:05 → 4W 08:42